=== PATIENT | male | born 1970 | race Caucasian/White ===

== ENCOUNTER 2017-01-11 11:46 | Emergency (ER) | payer MEDICAID ==
[~2017-01-11] VITALS: Ht 167.6 cm; Wt 89.0 kg
[2017-01-11 11:54] VITALS: Ht 167.6 cm; Wt 89.0 kg
[2017-01-11] MEDS ORDERED: ALBUTEROL/IPRATROPIUM (NEB) 3 ML AMP HHN STA (14:03)
[2017-01-11] MEDS ORDERED: ALBUTEROL 0.5% (NEB) 2.5 MG/0.5 ML AMP HHN STA (14:44)
[2017-01-11] MEDS ORDERED: predniSONE 20 MG TAB PO ONE (15:00)
--- NOTE | 2017-01-11 16:01 | RADRPT ---
PROCEDURE: XR Chest. CLINICAL INDICATION: Wheezing/pneumonia TECHNIQUE: Chest PA and lateral. COMPARISON: No comparison available. FINDINGS: The mediastinal structures are unremarkable. The heart is normal in size and configuration. The pu lmonary vascularity is normal. The lung jose are unremarkable. No consolidation is identified. The pleural spaces are unremarkable. The axial skeleton is unremarkable. IMPRESSION: No active intrathoracic disease. RPTAT: HGDB .Mark Matthew MD, MD Date Time Electronically viewed and signed by .Mark Matthew MD, MD on 01/11/2017 16:01 .B/
--- NOTE | 2017-01-11 16:29 | ERD ---
ER Documentation Chief Complaint Date/Time DATE: 01/11/17 TIME: 16:24 Chief Complaint BODY ACHES, COUGH & CONGESTION X6 DAYS, WORSE @ NIGHT HPI Pleasant 46-year-old male patient presents to emergency department today with 6 days of cough, patient reports cough is worse at night, productive for white sputum, patient feels short of breath with minimal activity. Patient denies chest pain, palpitations, or dizziness. Patient denies history of smoking, denies hypertension, high cholesterol, diabetes. ROS All systems reviewed and are negative except as per history of present illness. Medications Home Meds Active Scripts Inhaler, Assist Devices (E-Z SPACER) 1 Each Spacer, 1 EACH MC, #1 Prov:OSCAR,ELVIRA 01/11/17 Albuterol Sulfate* (Ventolin HFA*) 18 Gm Hfa.aer.ad, 2 PUFF INHALATION Q4H, #1 INHALER Prov:OSCAR,ELVIRA 01/11/17 Prednisone* (Prednisone*) 20 Mg Tab, 40 MG PO DAILY for 4 Days, TAB Prov:OSCAR,ELVIRA 01/11/17 Allergies Allergies: Coded Allergies: No Known Allergy (Unverified , 01/11/17) PMhx/Soc Medical and Surgical Hx: pt denies Medical Hx History of Surgery: Yes (APPEDECTOMY) Hx Alcohol Use: No Hx Substance Use: No Hx Tobacco Use: No Smoking Status: Never smoker Physical Exam Vitals Vital Signs Date Time Temp Pulse Resp B/P Pulse Ox O2 Delivery O2 Flow Rate FiO2 01/11/17 16:45 98.2 82 19 146/78 98 Room Air 01/11/17 14:56 84 20 96 21 01/11/17 14:18 78 20 96 21 01/11/17 11:54 97.9 83 19 157/96 97 Vital signs stable, nursing notes reviewed Physical Exam Const: No acute distress Head: Atraumatic Eyes: Normal Conjunctiva clear, no pallor or jaundice, EOMI, PERRLA ENT: Normal External Ears, Nose and Mouth. Mucous membranes moist Neck: Full range of motion.. Neck is supple ~ No meningismus. Resp: Chest rise and fall symmetrically, poor air movement auscultated, coarse wheeze throughout posterior lobes. Cardio: Regular rate and rhythm, no murmurs S1-S2 no S3-S4 Abd: Soft, non tender, non distended. Skin: Back: Ext: Neur: Awake and alert Psych: Normal Mood and Affect Results 24 hrs Current Medications Medications (Trade) Dose Ordered Sig/Peg Route PRN Reason Start Time Stop Time Status Last Admin Dose Admin Albuterol/ Ipratropium (Duoneb) 3 ml ONCE STAT HHN 01/11/17 14:03 01/11/17 14:05 DC 01/11/17 14:17 Prednisone (Prednisone) 60 mg ONCE ONCE PO 01/11/17 15:00 01/11/17 15:01 DC 01/11/17 15:00 Albuterol (Proventil 0.5% (Neb)) 5 mg ONCE STAT HHN 01/11/17 14:44 01/11/17 14:48 DC 01/11/17 14:56 Procedures/MDM Pleasant 46-year-old male patient comes into emergency department with sudden onset of cough, wheeze, shortness of breath with activity. Patient denies history of asthma, reactive airway, smoking, COPD. Patient denies any cardiovascular history, denies hypertension, hyperlipidemia, diabetes. Patient knows known causative factor for symptoms, reports worsening over the last 3 days, cough productive for white sputum. Physical exam findings coarse wheezing throughout posterior lobes. Patient received 60 mg of p.o. prednisone , and albuterol Atrovent treatment, with improvement in symptoms. Pneumonia, AMI, are unlikely. Patient's vitals are stable, responding to steroids and bronchodilators. I feel the patient is stable for discharge at this time. I have discussed results, examination findings, the treatment plan with the patient and family present prior to discharge. Indications for emergent reevaluation such as shortness of breath, cough not responding to inhalers, chest pain. Shortness of breath., side effects of medication were also discussed. All questions were answered. Patient verbalizes understanding and agrees with plan of care. Departure Condition: Good Patient Instructions: Acute Bronchitis [facility] Additional Instructions: Thank you for for coming to [facility] for your care today. Please ask your nurse or provider if you have questions about your care today and do not leave until all your questions have been answered. Please use any medications given as directed and follow-up with your doctor (or the doctor you were referred to) in the next 2-3 days. If you do not have a primary care doctor you may follow up at the [facility] (listed below). You may also use motrin and tylenol as needed for fever and/or pain unless instructed otherwise by your provider or nurse. Indications for more urgent follow-up have been discussed, but you may return to the Emergency Department at ANY time for any worrisome or worsening symptoms. If you have abdominal pain, please know that no test or exam you received is perfect and you should follow up within 8 hours for continued pain. If you had any imaging studies today, such as an X-Ray or CT Scan, these studies will be reviewed later by a radiologist. You will be called if there are important findings that were not identified today, so make sure the contact information you provided at registration is correct. If you received any narcotic pain control medicine today, such as Vicodin, Morphine or Dilaudid, your coordination and judgment may be affected for a number of hours. Please do not drive or operate heavy machinery, and you may want someone to assist you at home. If you were given a prescription for narcotic medication, be aware that it is very addictive- use sparingly and only if necessary. ELVIRA MOORE Jan 11, 2017 16:29
[2017-01-11] MEDS ORDERED: INHA1SPA53 MC (16:37)
[2017-01-11] MEDS ORDERED: ALBU18HF INHALATION (16:37)
[2017-01-11] MEDS ORDERED: PRED20TA PO (16:37)
[2017-01-11 16:45] VITALS: BP 146/78; PULSE 82; RESP 19; TEMP 98.2
== END 2017-01-11 16:46 | disposition home or self-care (01) ==
LOC: FTE 11:46
DX: J20.9 Acute bronchitis, unspecified (principal)
CPT/HCPCS: 71020; 94640; 94664; J7512; Z7610

== ENCOUNTER 2017-02-02 11:10 | Emergency (ER) | payer MEDICAID ==
[~2017-02-02] VITALS: Ht 167.6 cm; Wt 90.0 kg
[~2017-02-02 11:10] MED LIST: ALBU18HF INHALATION; INHA1SPA53 MC; PRED20TA PO
[2017-02-02 11:13] VITALS: Ht 167.6 cm; Wt 90.0 kg
[2017-02-02] MEDS ORDERED: ALBUTEROL 0.083% (NEB) 2.5 MG/3 ML AMP HHN STA (11:48)
--- NOTE | 2017-02-02 11:48 | ERD ---
ER Documentation Chief Complaint Date/Time DATE: 02/02/17 TIME: 11:42 Chief Complaint Complains of chest pain x 1 month HPI 46-year-old male who presents to the emergency room for complaints of chest pain , shortness of breath, wheezing that is on and off for about a month. Pain was described as achy nonradiating it is more located on epigastric area. Stated that his chest pain is worse whenever he coughs and on inspiration. Stated it was here last 01/12/2017 for the same complaint. Denies headache, loss of consciousness, dizziness, blurry vision, changes in vision, photophobia, facial pain, ear pain, throat pain, difficulty swallowing, neck pain, shoulder pain, hemoptysis, abdominal pain, back pain, loss of appetite, nausea, vomiting, hematochezia, diarrhea, constipation, urinary symptoms, bladder and bowel incontinences, extremity weakness, extremity tenderness, numbness or tingling sensation, difficulty walking, recent travel, recent exposure to illness, recent antibiotic use in the last 3 months, fever, chills. Allergy: No known drug allergies. PMH: Denies. Medications: Surgery: Appendectomy when he was 17 years old. Family history: Denies family history of cardiac before the age of 50, stroke. 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 Denies smoking, use of alcohol, use of illegal drugs. ROS All systems reviewed and are negative except as per history of present illness. Medications Home Meds Active Scripts Prednisone* (Prednisone*) 20 Mg Tab, 20 MG PO DAILY for 4 Days, TAB Prov:VIGNESH LAI F 02/02/17 Albuterol Sulfate* (Proair HFA*) 8.5 Gm Hfa.aer.ad, 2 PUFF INH Q4, #1 INHALER Prov:PORFIRIOILACRISTHIAN MICHELAR F 02/02/17 Azithromycin* (Zithromax*) 250 Mg Tablet, 250 MG PO .ZPACK DIRECTED, #6 TAB TAKE 500 MG (2 TABS) THE FIRST DAY THEN 250 MG (1 TAB) DAYS 2-5 Prov:PASILACRISTHIAN MICHELAR F 02/02/17 Inhaler, Assist Devices (E-Z SPACER) 1 Each Spacer, 1 EACH MC, #1 Prov:OSCARELVIRA 01/11/17 Albuterol Sulfate* (Ventolin HFA*) 18 Gm Hfa.aer.ad, 2 PUFF INHALATION Q4H, #1 INHALER Prov:OSCAR,ELVIRA 01/11/17 Prednisone* (Prednisone*) 20 Mg Tab, 40 MG PO DAILY for 4 Days, TAB Prov:OSCAR,ELVIRA 01/11/17 Allergies Allergies: Coded Allergies: No Known Allergy (Unverified , 01/11/17) PMhx/Soc History of Surgery: Yes (APPEDECTOMY) Hx Alcohol Use: No Hx Substance Use: No Hx Tobacco Use: No Physical Exam Vitals Vital Signs Date Time Temp Pulse Resp B/P Pulse Ox O2 Delivery O2 Flow Rate FiO2 02/02/17 12:25 89 17 97 21 02/02/17 11:13 98.7 109 20 153/95 98 Physical Exam CONSTITUTIONAL: Well-appearing; well-nourished; in no apparent distress. HEAD: Normocephalic; atraumatic. EYES: Conjunctiva clear, sclera non-icteric, EOM intact. PERRL Ears: Hearing intact. EACs clear, TMs non-bulging, non-inflamed, translucent & mobile, ossicles normal appearance, No obstructions, no erythema, no discharges Nose: No obstructions. No polyps. No external lesions. Mucosa non-inflamed. No external lesions, septum and turbinates normal. No rhinorrhea. No discharges. Frontal sinus is non-tender to palpation. Maxillary sinus is non-tender to palpation. MOUTH: Moist mucous membranes, no lesion, no obstructions, no vesicles, no thrush, patent airway Throat: Uvula in midline. Right tonsil is +1 with no erythema, no exudate. Left tonsil is +1 with no erythema, no exudate. Tolerating secretions well. No difficulty swallowing. Good gag reflex. Patent airway. Speaks full and clear sentences. Neck: Supple, without lesions, bruits, or adenopathy. No mass. Thyroid non- enlarged and non-tender to palpation. CHEST: Symmetrical chest. Respirations even and not labored. No retractions noted. CARDIOVASCULAR: Normal S1, S2. RRR. No murmurs, gallops. RESPIRATORY: Normal chest excursion with respiration; breath sounds no rhonchi, or rales. Wheezing bilaterally. Breathing even and unlabored. Speaking in clear, full, and complete sentences w/ ease. ABDOMEN: Normal bowel sounds normal. Soft, round, non-distended, non-guarding, no tenderness, no rebound, no organomegaly, no masses, no pulsating abdominal mass. No hernia. No peritoneal signs. : No CVA tenderness. BACK: Symmetrical shoulder. Spine is midline without deformity, tenderness. No evidence of trauma or deformity. PELVIS: Stable pelvis. No evidence of trauma or deformity. MUSCULOSKELETAL: Normal gait and station. No misalignment, asymmetry, crepitation, defects, tenderness, masses, effusions, decreased range of motion, instability, atrophy or abnormal strength or tone in the head, neck, spine, ribs , pelvis or extremities. No calf tenderness. NEUROVASCULAR: Distal pulses are present. Pedal pulse are present, equal, and normal. Capillary refills are < 2 seconds. NEUROLOGIC: Alert and oriented x4. Speaks full and clear sentences. Cranial Nerves II-XII normal. Sensation to pain, touch, and proprioception normal. Grossly unremarkable. No neurologic deficits. Romberg test is negative. PSYCHOLOGICAL: The patients mood and manner are appropriate. No hallucinations , delusions. Not SI. Not HI. Has the capacity to decide for self SKIN: Normal for age and ethnicity; warm; dry; good turgor; no apparent lesions or exudates. No rashes, hives, discoloration. Intact. Results 24 hrs Laboratory Tests Test 02/02/17 12:00 Troponin I < 0.012ng/ml Current Medications Medications (Trade) Dose Ordered Sig/Peg Route PRN Reason Start Time Stop Time Status Last Admin Dose Admin Albuterol (Proventil 0.083% (Neb)) 5 mg ONCE STAT N 02/02/17 11:48 02/02/17 11:50 DC 02/02/17 12:24 Ipratropium Daniels (Atrovent 0.02% (Neb)) 0.5 mg ONCE ONCE HHN 02/02/17 12:00 02/02/17 12:01 DC 02/02/17 12:24 Dexamethasone (Decadron) 10 mg ONCE ONCE IM 02/02/17 12:00 02/02/17 12:01 DC 02/02/17 11:57 Procedures/MDM Examination: Please see physical examination. Disease process, medical treatment was explained to the patient and family member. They verbalized understanding and agreed with the diagnostic tests, medical treatment, and follow-up care. EKG: Sinus tachycardia with ventricular rate of 108 bpm. No evidence of acute myocardial infarction. Troponin: Negative. Radiology: Chest x-ray Impression: No change in mild left perihilar scarring versus discoid atelectasis. Treatment: Albuterol and Atrovent breathing treatment. Decadron IM. Re-evaluation: Respirations even and unlabored. Tolerating secretions. No drooling. No difficulty swallowing. Patent airway. Speaks full and clear sentences. Lung sounds clear to auscultations. No wheezing. No rales. No rhonchi. Patient stated that he feels much better this time. Unremarkable abdominal reexamination. Consultation: None. Differential diagnosis: Acute myocardial infarction versus pneumonia versus bronchitis versus upper respiratory infection versus asthma exacerbation Medical decision makin-year-old male who presents to the emergency room for complaints of chest pain, shortness of breath, wheezing that is on and off for about a month. Pain was described as achy nonradiating it is more located on epigastric area. Stated that his chest pain is worse whenever he coughs and on inspiration. Stated it was here last 01/12/2017 for the same complaint. Patient's complaint, patient's history about his complaint, my physical findings , diagnostic test results, my reevaluation are consistent with my final diagnosis of acute bronchitis. Medications prescribed are the following: Azithromycin. Pro-air. Prednisone. Patient and family member are made aware of the side effects and adverse reactions of the medications prescribed. Instructed on when to seek emergent and medical attention in case allergic/anaphylactic reactions or severe side effects and or adverse reactions to medications. Patient and family member verbalized understanding. Patient instructed Instructed to follow-up with his PCP in 24-48 hours. Patient stated that he will see his own primary care provider in the next 24 hours. Instructed to Call 911 for chest pain, shortness of breath. Advised to come back here in ED as soon as possible for severity of symptoms which includes but not limited to: any new symptoms; shortness of breath/difficulty of breathing; cardiovascular changes; severe gastrointestinal symptoms; signs and symptoms of bleeding and or infection; signs of compartment syndrome/neurovascular changes; neurological changes/deficits. Patient and family member verbalized understanding. Upon discharge, patient is alert and oriented x 4, speaks full and clear sentences, denies pain, has no neurological deficits, has no neurovascular deficits, difficulty of breathing. Breathing even and unlabored. Lung sounds are clear to auscultation. Not in distress. Appears comfortable. Ambulatory with steady gait. Appears satisfied with care provided here in ED. Departure Diagnosis: Primary Impression: Bronchitis Additional Impression: Chest pain Condition: Good Additional Instructions: Patient instructed Instructed to follow-up with his PCP in 24-48 hours. Patient stated that he will see his own primary care provider in the next 24 hours. Instructed to Call 911 for chest pain, shortness of breath. Advised to come back here in ED as soon as possible for severity of symptoms which includes but not limited to: any new symptoms; shortness of breath/difficulty of breathing; cardiovascular changes; severe gastrointestinal symptoms; signs and symptoms of bleeding and or infection; signs of compartment syndrome/neurovascular changes; neurological changes/deficits. Patient and family member verbalized understanding. VIGNESH LAI Feb 02, 2017 11:48
[2017-02-02] MEDS ORDERED: DEXAMETHASONE 10 MG/ML 1 ML INJ IM ONE (12:00)
[2017-02-02] MEDS ORDERED: IPRATROPIUM (NEB) 0.5 MG/2.5 ML AMP HHN ONE (12:00)
--- NOTE | 2017-02-02 12:28 | RADRPT ---
PROCEDURE: Chest x-ray CLINICAL INDICATION: Cough and chest pain. TECHNIQUE: Two views: Frontal and lateral. COMPARISON: 01/11/2017 FINDINGS: The cardiac silhouette is normal. No infiltrates are noted. The hilar regions are unremarkable. No pneumothorax or pleural effusions are visualized. Mild left perihilar scarring versus atelectatic changes are noted and unchanged since the previous s tudy. IMPRESSION: 1. No change in mild left perihilar scarring versus discoid atelectasis. RPTAT: HGSG .Mark Yang MD, MD Date Time Electronically viewed and signed by .Mark Yang MD, on 02/02/2017 12:27 .G/
[2017-02-02] MEDS ORDERED: AZIT250T94 PO (13:01)
[2017-02-02] MEDS ORDERED: ALBU8.5H3 INH (13:01)
[2017-02-02] MEDS ORDERED: PRED20TA PO (13:01)
== END 2017-02-02 13:10 | disposition home or self-care (01) ==
LOC: FTE 11:10
DX: J20.9 Acute bronchitis, unspecified (principal); R07.9 Chest pain, unspecified
CPT/HCPCS: 36415; 71020; 84484; 93005; 94664; 96372; J1100; Z7502; Z7610